=== PATIENT | male | born 1980 | race Caucasian/White ===

== ENCOUNTER 2024-07-07 02:43 | Day surgery (SDC) | payer BC, SELFPAY ==
[2024-07-07] VITALS (24 sets, daily range): BP systolic 120–165; BP diastolic 71–105; PULSE 75–99; RESP 14–20; TEMP 36.3–36.8; O2SAT 87–100; BMI 33.5
--- NOTE | 2024-07-07 03:06 | ED.GENADULT ---
HPI - General Adult General Chief complaint: Abdominal Pain Stated complaint: lower right abdominal pain Time Seen by Provider: 07/07/24 03:06 History of Present Illness HPI narrative: CC: Right Lower Abdominal Pain pt. with pain since 1900 last night. feels like a gas bubble. did have 2 small bm 's around 2100 yesterday. denies fevers, n/v, diarrhea. 44-year-old man presenting to the emergency department with concern pain maybe a pressure in the right low abdomen. He realized around bed timing last night that he does was uncomfortable in this area not wanting to be touched by his kid. Suppose like pain may have started 10 or 11 hours prior to presentation. [place] like needed the above far to her like a gas bubble. Did have a couple small bowel movements but has not improved. No nausea. Feels like does not tend to complain much about pain typically. No fever. No noted dysuria. Tried Gas-X and Pepto Bismol without relief. No prior surgeries. Takes Adderall for ADD during the work week Related Data Home Medications ?Medication ?Instructions ?Recorded ?Confirmed dextroamphetamine-amphetamine 10 10 mg PO DAILY PRN 07/07/24 07/07/24 mg tablet (Adderall) Allergies Allergy/AdvReac Type Severity Reaction Status Date / Time No Known Drug Allergies Allergy Verified 07/07/24 02:50 Review of Systems Status of ROS: Reports: 6 or more systems reviewed and unremarkable except as noted in History and below [facility] Medical History ADHD ?F90.9 - Attention-deficit hyperactivity disorder, unspecified type (ICD-10) Surgical History No significant past surgical history Social History Smoking Status: Never smoker Second hand tobacco smoke exposure: No How often do you have a drink containing alcohol: never AUDIT-C Alcohol total score: 0 Non-prescribed substance use: denies use Exam Narrative: Exam Narrative: Pleasant. Little restless. Breathing briefly. Lungs are clear. Heart in regular rate and rhythm. Well-perfused peripherally. Abdomen is a little overweight, soft, without peritoneal signs but reproducible moderate tenderness to palpation in the right lower abdomen/quadrant. Const: Vital Signs, click to edit/add: Vital Signs - 24 hr 07/07/24 02:48 07/07/24 03:38 07/07/24 04:02 Temperature 98.2 F Pulse Rate 85 96 Pulse Rate [Right Pulse Oximeter] 89 Respiratory Rate 18 18 20 Blood Pressure 165/98 H 150/103 H Blood Pressure [Ri ght Upper Arm] 164/105 H Pulse Oximetry 99 96 98 Oxygen Delivery Me thod Room Air 07/07/24 04:47 07/07/24 05:02 07/07/24 05:06 Temperature Pulse Rate 85 99 Pulse Rate [Right Pulse Oximeter] Respiratory Rate 18 18 Blood Pressure 155/85 H 150/100 H Blood Pressure [Ri ght Upper Arm] Pulse Oximetry 97 97 97 Oxygen Delivery Me thod 07/07/24 05:32 07/07/24 06:02 07/07/24 06:16 Temperature 98.2 F 98.2 F Pulse Rate 87 77 Pulse Rate [Right Pulse Oximeter] Respiratory Rate 20 20 Blood Pressure 136/88 139/89 Blood Pressure [Ri ght Upper Arm] Pulse Oximetry 94 93 Oxygen Delivery Me thod 07/07/24 06:32 Temperature 98.2 F Pulse Rate 98 Pulse Rate [Right Pulse Oximeter] Respiratory Rate 18 Blood Pressure 144/83 H Blood Pressure [Ri ght Upper Arm] Pulse Oximetry 94 Oxygen Delivery Me thod Documenting provider has reviewed patient's vital signs: yes Course Vital Signs Vital signs: Initial Vital Signs Temperature 98.2 F 07/07/24 02:48 Temperature Source Temporal Artery Scan 07/07/24 02:48 Pulse Rate 89 07/07/24 02:48 Respiratory Rate 18 07/07/24 02:48 Blood Pressure 164/105 H 07/07/24 02:48 Blood Pressure Mean 124 H 07/07/24 02:48 Blood Pressure Position Sitting 07/07/24 02:48 Pulse Oximetry 99 07/07/24 02:48 Oxygen Delivery Method Room Air 07/07/24 02:48 Vital Signs Temperature 98.2 F 07/07/24 02:48 Pulse Rate 89 07/07/24 02:48 Respiratory Rate 18 07/07/24 02:48 Blood Pressure 164/105 H 07/07/24 02:48 Pulse Oximetry 99 07/07/24 02:48 Oxygen Delivery Method Room Air 07/07/24 02:48 Temperature 98.2 F 07/07/24 06:32 Pulse Rate 98 07/07/24 06:32 Respiratory Rate 18 07/07/24 06:32 Blood Pressure 144/83 H 07/07/24 06:32 Pulse Oximetry 94 07/07/24 06:32 Oxygen Delivery Method Room Air 07/07/24 02:48 Medications Administered Medications: Discontinued Medications Generic Name Dose Route Start Last Admin Trade Name Chau PRN Reason Stop Dose Admin Sodium Chloride 1,000 mls @ 1,000 mls/hr 07/07/24 03:17 07/07/24 04:09 0.9 % Sodium Chloride 1000 Ml IV 07/07/24 04:16 Infused .Q1H ONE Infusion Ketorolac Tromethamine 15 mg 07/07/24 04:39 07/07/24 04:42 Ketorolac 15 Mg/Ml Inj IVP 07/07/24 04:40 15 mg ONCE ONE Administration Morphine Sulfate 4 mg 07/07/24 04:39 07/07/24 05:03 Morphine 4 Mg/Ml Inj IVP 07/07/24 04:40 2 mg ONCE ONE Administration Medical Decision Making MDM Narrative Medical decision making narrative: Does not seem as though he is describing constipation. Differential could include urinary tract infection though unlikely, kidney stone but also does not seem typical for that. Reproducibility and location I think in this case suggests appendicitis. Will do some imaging to verify. Review of a CT abdomen and pelvis independently by me shows changes developed think consistent with Pepto-Bismol ingestion. Otherwise does appear to be a plump appendix in the right lower abdomen and appendicolith. Radiology over-read below INDICATION: Right lower quadrant abdominal pain. TECHNIQUE: CT abdomen and pelvis without contrast. COMPARISON: None. FINDINGS: Lower chest: Unremarkable. Liver: Diffuse hepatic steatosis. Gallbladder and bile ducts: Unremarkable. Pancreas: Unremarkable. Spleen: Unremarkable. Adrenal glands: Unremarkable. Kidneys: No hydronephrosis or hydroureter. No urinary calculi. GI tract: No bowel obstruction. No suspicious bowel wall thickening. The appendix is mildly dilated measuring up to 8 mm with appendicolith (series 4, image 76), and periappendiceal inflammatory fat stranding. No periappendiceal fluid collection appreciated. Vasculature: No abdominal aortic aneurysm. Lymph nodes: No suspicious lymphadenopathy. Peritoneum/Abdominal Wall: No ascites or pneumoperitoneum. No acute abdominal wall abnormality. Pelvis: Normal bladder. Unremarkable prostate and seminal vesicles. Bones: No acute abnormality. IMPRESSION: 1. Findings compatible with acute appendicitis with appendicolith. No periappendiceal fluid collection/abscess. No pneumoperitoneum. 2. Diffuse hepatic steatosis. Please note that all CT scans at this facility use dose modulation, iterative reconstruction, and/or weight-based dosing when appropriate to reduce radiation dose to as low as reasonably achievable. Dictated by Jeremiah Barlow MD @ 07/07/2024 3:46:11 AM I did discuss these findings with General surgery. Would anticipate surgery for appendicitis at some point this morning. Anticipate boarding in the emergency department until surgical intervention. Has received L normal saline. Initially declined pain medication but having trouble sleeping and so did give 15 mg of ketorolac and then still with some pain, ordered for 4mg but per preference only took 2 mg of morphine per his preference. On reassessment is sleeping. Lab Data Lab results reviewed: Yes I reviewed the patient's lab results Labs: Lab Results 07/07/24 07/07/24 Range/Units 03:25 03:29 WBC 9.69 (4.50-11.00) K/uL RBC 4.95 (4.30-5.90) m/uL Hgb 15.3 (13.5-17.5) gm/dL Hct 43.2 (37.0-53.0) % MCV 87 (80-100) fL MCH 31 (26-34) pg MCHC 35 (32-36) gm/dL RDW Coeff of Ck 12.1 (11.5-15.5) % Plt Count 189 (140-440) K/uL Neut % (Auto) 79.2 H (42.0-72.0) % Lymph % (Auto) 13.0 L (20-44) % [place] % (Auto) 6.4 (0.0-11.0) % Eos % (Auto) 0.9 (0.0-7.0) % Baso % (Auto) 0.2 (0.0-3.0) % Neut # (Auto) 7.70 H (1.7-7.0) K/uL Lymph # (Auto) 1.30 (0.90-2.90) K/uL [place] # (Auto) 0.60 (0.00-0.90) K/UL Eos # (Auto) 0.09 (0.00-0.50) K/uL Baso # (Auto) 0.02 (0.00-0.30) K/uL Abs Immat Gran (auto) 0.03 (0.00-0.30) K/uL Imm/Tot Granulo (auto) 0.3 % Sodium 139 (135-149) mmol/L Potassium 4.0 (3.6-5.1) mmol/L Chloride 102 (96-114) mmol/L Carbon Dioxide 29 (20-32) mmol/L Anion Gap 8 (7-15) mEq/L BUN 21 (5-24) mg/dL Creatinine 1.0 (0.5-1.5) mg/dL Estimated Creat Clear 100.40 Estimated GFR 95 ml/min Glucose 109 (60-115) mg/dL Calcium 9.4 (8.4-10.6) mg/dL C-Reactive Protein < 0.5 L (0.5-1.0) mg/dL Urine Color Yellow (Yellow) Urine Appearance Clear (Clear) Urine pH 5.5 (5.0-8.5) Ur Specific [place] 1.025 (1.000-1.030) Urine Protein Negative (Negative) Urine Glucose (UA) Negative (Negative) Urine Ketones Negative (Negative) Urine Blood Negative (Negative) Urine Nitrite Negative (Negative) Urine Bilirubin Negative (Negative) Urine Urobilinogen 0.2 (0.2-1.0) Ur Leukocyte Esterase Negative (Negative) Urine RBC 0-2 (0-2) Urine WBC 0-2 (0-5) Ur Squamous Epith Cells Few (None-Few) Urine Bacteria Few A (None) Discharge Plan Discharge Clinical Impression: Acute appendicitis, Abdominal pain Patient Disposition: XFER to OR Condition: Stable Follow Up/Referrals: Jessica Isaac PA [Primary Care Provider, Family Practice]
--- NOTE | 2024-07-07 03:17 | CRLHL7_ITS ---
For Patients: As a result of the Century Cures Act, medical imaging exams and procedure reports are released immediately into your electronic medical record. You may view this report before your referring provider. If you have questions, please contact your health care provider. INDICATION: Right lower quadrant abdominal pain. TECHNIQUE: CT abdomen and pelvis without contrast. COMPARISON: None. FINDINGS: Lower chest: Unremarkable. Liver: Diffuse hepatic steatosis. Gallbladder and bile ducts: Unremarkable. Pancreas: Unremarkable. Spleen: Unremarkable. Adrenal glands: Unremarkable. Kidneys: No hydronephrosis or hydroureter. No urinary calculi. GI tract: No bowel obstruction. No suspicious bowel wall thickening. The appendix is mildly dilated measuring up to 8 mm with appendicolith (series 4, image 76), and periappendiceal inflammatory fat stranding. No periappendiceal fluid collection appreciated. Vasculature: No abdominal aortic aneurysm. Lymph nodes: No suspicious lymphadenopathy. Peritoneum/Abdominal Wall: No ascites or pneumoperitoneum. No acute abdominal wall abnormality. Pelvis: Normal bladder. Unremarkable prostate and seminal vesicles. Bones: No acute abnormality. IMPRESSION: 1. Findings compatible with acute appendicitis with appendicolith. No periappendiceal fluid collection/abscess. No pneumoperitoneum. 2. Diffuse hepatic steatosis. Please note that all CT scans at this facility use dose modulation, iterative reconstruction, and/or weight-based dosing when appropriate to reduce radiation dose to as low as reasonably achievable. Dictated by Jeremiah Barlow MD @ 07/07/2024 3:46:11 AM (Electronically Signed)
[2024-07-07] MEDS: 0.9 % SODIUM CHLORIDE 1000 ml 1,000 ML IV (03:25)
[2024-07-07 03:32] LABS: Basophils Absolute Auto 0.02 K/uL (0.00-0.30); Basophils Percent Auto 0.2 % (0.0-3.0); Eosinophils Absolute Auto 0.09 K/uL (0.00-0.50); Eosinophils Percent Auto 0.9 % (0.0-7.0); Hematocrit 43.2 % (37.0-53.0); Hemoglobin* 15.3 gm/dL (13.5-17.5); Immature Granulocytes Abs Auto 0.03 K/uL (0.00-0.30); Immature Granulocytes Pct Auto 0.3 %; Mean Corpuscular HGB Conc 35 gm/dL (32-36); Mean Corpuscular Hemoglobin 31 pg (26-34); Mean Corpuscular Volume 87 fL (80-100); Monocytes Percent Auto 6.4 % (0.0-11.0); Neutrophils Percent Auto 79.2 % (42.0-72.0); Platelet Count* 189 K/uL (140-440); RDW Coefficient of Variation % 12.1 % (11.5-15.5); Red Blood Count 4.95 m/uL (4.30-5.90); White Blood Count* 9.69 K/uL (4.50-11.00)
[2024-07-07 03:36] LABS: Appearance Urine Clear (Clear); Bilirubin Urine Negative (Negative); Blood Urine Negative (Negative); Color Urine Yellow (Yellow); Glucose Urine Negative (Negative); Ketones Urine Negative (Negative); Leukocyte Esterase Urine Negative (Negative); Nitrite Urine Negative (Negative); Protein Urine Negative (Negative); Specific Gravity Urine 1.025 (1.000-1.030); Urobilinogen Urine 0.2 (0.2-1.0); pH Urine 5.5 (5.0-8.5)
[2024-07-07 03:37] LABS: Slide Review Reflex No
[2024-07-07 03:45] LABS: Chloride* 102 mmol/L (96-114); Sodium* 139 mmol/L (135-149)
[2024-07-07 03:48] LABS: Anion Gap 8 mEq/L (7-15); Blood Urea Nitrogen* 21 mg/dL (5-24); Calcium* 9.4 mg/dL (8.4-10.6); Carbon Dioxide* 29 mmol/L (20-32); Estimated Glomerular Filt Rate 95 ml/min; Glucose* 109 mg/dL (60-115)
[2024-07-07 03:49] LABS: Bacteria Urine Few; RBC Urine 0-2 (0-2); Squamous Epithelial Cell Urine Few (None-Few); WBC Urine 0-2 (0-5)
[2024-07-07 03:52] LABS: C Reactive Protein* < 0.5 mg/dL (0.5-1.0)
--- OUTSIDE RECORDS SUMMARY | 2024-07-07 03:57 | XMS_ITS | Clinical Summary ---
Author Organization [facility] Address [address] [place] [id number] Care Team Providers Care Electronics Parts Sales Representative Name Role Phone No Ref-Primary, Physician Primary Care Provider Allergies No known active allergies Medications amphetamine-dex troamphetamine (ADDERALL XR) 25 MG 24 hr capsule Take by mouth daily as needed 0 02/20/2017 Active cephALEXin (KEFLEX) 500 MG capsuleIndicati ons:Paronychia of finger of right hand Take 1 capsule (500 mg) by mouth 2 times daily 20 capsule 02/20/2017 Active Active Problems No known active problems Immunizations Immunization Administration Dates Next Due Influenza Vaccine >6 months,quad, PF 11/15/2018 TDAP Vaccine (Adacel) 10/24/2015 Family History Relation Status Comments Father Alive Mother Alive Social History Tobacco Use Types Packs/Day Years Used Date Smoking Tobacco: Never Smokeless Tobacco: Never Alcohol Use Standard Drinks/Week Comments Yes 0 (1 standard drink = 0.6 oz pur e alcohol) rare PHQ-2 Answer Date Recorded PHQ-2 Score 0 02/13/2018 Adolescent Education Answer Date Record ed Getting School Help Needed Not on file 10/27 Sex and Gender Information Value Date Recorded Sex Assigned at Male 04/22/2019 9:19 AM CDT Legal Sex Male 11:11 AM CDT Gender Identity Male 04/22/2019 9:19 AM CDT Sexual Orientation Straight 06/18/2021 12 :12 PM CDT Last Filed Vital Signs Vital Sign Reading Time Taken Comments Blood Pressure 130/72 02/20/2017 9:31 AM PARKING METER COLLECTOR Pulse 68 02/20/2017 9:31 AM PARKING METER COLLECTOR Temperature 37 C (98.6 F) 02/20/2017 9:31 AM PARKING METER COLLECTOR Respiratory Rate 16 02/20/2017 9:31 AM PARKING METER COLLECTOR Oxygen Saturation 97% 02/20/2017 9:31 AM PARKING METER COLLECTOR Inhaled Oxygen Concentration - - Weight 100.7 kg (222 lb) 02/20/2017 9:31 AM PARKING METER COLLECTOR Height 182.9 cm (6') 02/20/2017 9:31 AM PARKING METER COLLECTOR Body Mass Index 30.11 02/20/2017 9:31 AM PARKING METER COLLECTOR Plan of Treatment Not on file [place] Care Teams Electronics Parts Sales Representative Relationship Specialty Start Date End Date No Ref-Primary, Physician PCP - General 09/02/16
--- OUTSIDE RECORDS SUMMARY | 2024-07-07 03:57 | XMS_ITS | Clinical Summary ---
Author Organization [facility] Address [address] [place] [address] Care Team Providers Care Technician'S Helper Name Role Phone Jessica Isaac Primary Care Provider Allergies No known active allergies Medications dextroamphetamin e-amphetamine (Adderall XR) 10 mg Extended-Release capsuleIndicatio ns:Attention deficit disorder, unspecified type Take 1-2 Capsules (10-20 mg) by mouth once daily. 60 Capsule 5 Active Active Problems Problem Noted Date Diagnosed Date Controlled substance agreement signed 12/24/2020 Attention deficit disorder 12/24/2020 Resolved Problems Problem Noted Date Diagnosed Date Resolved Date COVID-19 virus infection 03/23/202112/2021 Immunizations Immunization Administration Dates Next Due COVID-19 vaccine (Moderna 100mcg/0.5mL) PF, MDV 02/16/2021 Influenza, IIV4 03/12/2020,11/15/2018 Tdap 10/24/2015 Family History Medical History Relation Name Comments Diabetes type II Father Relation Name Status Comments Father Social History Tobacco Use Types Packs/Day Years Used Date Smoking Tobacco: Never Smokeless Tobacco: Never Alcohol Use Standard Drinks/Week Comments Yes 1 (1 standard drink = 0.6 oz pur e alcohol) PHQ-2 Answer Date Recorded PHQ-2 TOTAL SCORE 0 06/04/2023 Social Connections Answer Date Recorded Frequency of Communication with Friends and Fami ly 0 06/09/2022 Financial Resource Strain Answer Date R ecorded Difficulty of Paying Living Expenses 3 06/09/2022 Difficulty of Paying Living Expenses Not on file 06/09/2022 Food Insecurity Answer Date Recorded Worried About Running Out of Food in the Last Ye ar 1 06/09/2022 Transportation Needs Answer Date Record ed Lack of Transportation (Medical) 1 06/09/2022 Housing Stability Answer Date Recorded Unable to Pay for Housing in the Last Year 1 06/09/2022 Sex and Gender Information Value Date Recorded Sex Assigned at Male 06/29/2021 3:29 PM CDT Legal Sex Male 5:32 PM CDT Gender Identity Male 06/29/2021 3:29 PM CDT Sexual Orientation Straight 06/29/2021 3: 29 PM CDT Obstetrics History Last Filed Vital Signs Vital Sign Reading Time Taken Comments Blood Pressure 130/84 02/28/2024 2:06 PM LUMP RECEIVER Pulse 85 02/28/2024 2:06 PM LUMP RECEIVER Temperature 36.9 C (98.5 F) 12/18/2022 12:35 PM LUMP RECEIVER Respiratory Rate 16 02/28/2024 2:06 PM LUMP RECEIVER Oxygen Saturation 96% 02/28/2024 2:06 PM LUMP RECEIVER Inhaled Oxygen Concentration - - Weight 110.8 kg (244 lb 4.8 oz) 02/28/2024 2:06 PM LUMP RECEIVER Height 180.3 cm (5' 11) 06/04/2023 10: 58 AM CDT Body Mass Index 34.07 06/04/2023 10:58 AM CDT Plan of Treatment Health Maintenance Due Date Last Done Comments Hepatitis B series for 19+ (1 of 3 - 19+ 3-dose series) 02/06/1999 COVID-19 vaccine series ( season) 2023 02/16/2021 BMI (ht and wt on same day) for age 18+ 06/03/2024 06/04/2023, 06/09/2022, 12/16/2021, Additional history exists Depression screening for age 12+ 06/03/2024 06/04/2023, 03/29/2021, 03/12/2020 Influenza Vaccine (Season Ended) 2024 03/12/2020, 11/15/2018 Tetanus booster 10/23/2025 10/24/2015 Lipids for age 35-44 12/16/2026 12/16/2021, 12/17/19 22 Tdap Completed 10/24/2015 HIV for age 15-65 Completed 06/07/2020 Hepatitis C screening for age 18-79 Completed 06/07/2020 Pneumococcal series for age 6-49 Aged Out No longer eligible based on patient's age to complete this topic Procedures Procedure Name Priority Date/Time Associated Diagnosis Comments LIPID PANEL W REFLEX MEASURED LDL Routine 12/16/2021 9:00 AM LUMP RECEIVER Lipid screening ANTI HIV 1/2 Routine 06/07/2020 8:55 AM CDT Contact with and (suspected) exposure to potentially hazardous body fluids ANTI HCV Routine 06/07/2020 8:55 AM CDT Contact with and (suspected) exposure to potentially hazardous body fluids from Last 3 Months or Most Recently Relevant to Health Maintenance Results * (ABNORMAL) LIPID PANEL W REFLEX MEASURED LDL (12/16/2021 9:00 AM LUMP RECEIVER) CHOLESTEROL,TOTAL 244(H) 100 - 199 mg/dL 12/17/2021 4:09 PM LUMP RECEIVER [facility] TRIGLYCERIDES 411(H) <150 mg/dL 12/17/2021 4:09 PM LUMP RECEIVER [facility] HDL CHOLESTEROL 35(L) >40 mg/dL 2 4:09 PM LUMP RECEIVER [facility] NON-HDL CHOLESTEROL 209(H) <145 mg/dl 12/17/2021 4:09 PM LUMP RECEIVER [facility] CHOL/HDL RATIO 6.97(H) <4.50 12/17/2021 4:09 PM LUMP RECEIVER [facility] LDL CHOLESTEROL 2 4:09 PM LUMP RECEIVER [facility] Comment:Invalid LDL when Tri g >400, reflexed to measured LDL VLDL CHOLESTEROL COMMENT 12/17/2021 4:09 PM [facility] Comment:Unable to calculate VLDL. PROVIDER ORDERED STATUS RANDOM 12/17/2021 4:09 PM LUMP RECEIVER [facility] Blood BLOOD SPECIMEN / Unknown Venipuncture / Unknown 12/16/2021 9:00 AM LUMP RECEIVER 12/16/2021 9:03 AM LUMP RECEIVER Jessica MARTIN CHEMISTRY Final R esult [facility] [address] [place] [address], [place] * ANTI HCV (06/07/2020 8:55 AM CDT) HEPATITIS C ANTIBODY Non-React vasu Non-React vasu 06/07/2020 3:12 PM CDT [facility] Comment:Antibodies to HCV no t detected; does not exclude the possibility of exposure to HCV. Blood BLOOD SPECIMEN / Unknown Venipuncture / Unknown 06/07/2020 8:55 AM CDT 06/07/2020 9:07 AM CDT Jessica MARTIN SEND OUTS Final R esult [facility] [address] [place] [address], [place] * ANTI HIV 1/2 (06/07/2020 8:55 AM CDT) HIV-1/HIV-2 ANTIBODY Non-Reacti ve Non-Reacti ve 06/07/2020 3:55 PM CDT [facility] Comment:HIV-1 p24 and HIV-1/ HIV-2 Ab not detected. Blood BLOOD SPECIMEN / Unknown Venipuncture / Unknown 06/07/2020 8:55 AM CDT 06/07/2020 9:07 AM CDT Jessica MARTIN SEND OUTS Final R esult [facility] [address] [place] [address], from Last 3 Months or Most Recently Relevant to Health Maintenance Insurance Care Teams Technician'S Helper Relationship Specialty Start Date End Date Jessica Isaac PA [address] [place] [address] [address] [place] [address] PCP - General Physician Spar[place] 02/28/24
[2024-07-07] MEDS: KETOROLAC 15 MG/ML inj IVP (04:42)
[2024-07-07] MEDS: MORPHINE 4 MG/ML INJ IVP (05:03)
[2024-07-07] MEDS: LACTATED RINGERS 1000 ML 1,000 ML 100 ML IV ×2 (08:30→11:24)
[2024-07-07] MEDS: SODIUM CHLORIDE 0.9 % (FLUSH) 10 ML SYRINGE IVF (08:39)
--- NOTE | 2024-07-07 10:05 | PM.GSCN ---
History of Present Illness Consult details Date Seen: 07/07/24 Consult date: 07/07/24 Narrative: 44-year-old male presented to emergency room with abdominal pain. Patient states that he first felt like he was ?gassy?. This discomfort started last night around 6 or 8:00 p.m.. He did not have dinner. He fell asleep for 10 minutes but when he woke up, his discomfort was still bothering him. He was not passing gas. He denies any nausea vomiting. He denied fevers. He drove to grocery store to get Gas-[employer] but decided to come to the emergency room. I personally reviewed patient's workup in the emergency room. Patient was found to have normal WBC with elevated neutrophils. An abdominal CT was obtained that showed a dilated will enhancing appendix with periappendiceal inflammation. There was an appendicolith noted in the appendix. There is no evidence of an abscess. 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 Smoking Status: Never smoker Do you use any of these nicotine containing products: None Second hand tobacco smoke exposure: No How often do you have a drink containing alcohol: never How often do you have six or more drinks on one occasion: Never AUDIT-C Alcohol total score: 0 Non-prescribed substance use: denies use Caffeine: Yes Meds Home Medications and Allergies Home Medications ?Medication ?Instructions ?Recorded ?Confirmed ?Type dextroamphetamine-amphetamine 10 10 mg PO DAILY PRN 07/07/24 07/07/24 History mg tablet (Adderall) Allergies Allergy/AdvReac Type Severity Reaction Status Date / Time No Known Drug Allergies Allergy Verified 07/07/24 08:44 Exam Narrative: Exam Narrative: General appearance: Alert, cooperative, and in no distress Pulmonary: Chest symmetric, lungs clear bilaterally Cardiovascular Heart: Regular rate and rhythm, S1, S2, no murmurs/rubs/gallops Gastrointestinal Abdominal: soft, not distended, tender to palpation in the right lower quadrant with rebound tenderness. Not tender to palpation anywhere else. Skin: Normal skin color, texture, and turgor. No rashes or lesions. Psychiatric: Alert, cooperative, normal affect. Const: Vital Signs, click to edit/add: Vital Signs - 24 hr 07/07/24 02:48 07/07/24 03:38 07/07/24 04:02 Temperature 98.2 F Pulse Rate 85 96 Pulse Rate [Right Pulse Oximeter] 89 Respiratory Rate 18 18 20 Blood Pressure 165/98 H 150/103 H Blood Pressure [Le ft Arm] Blood Pressure [Ri ght Upper Arm] 164/105 H Pulse Oximetry 99 96 98 Oxygen Delivery Me thod Room Air 07/07/24 04:47 07/07/24 05:02 07/07/24 05:06 Temperature Pulse Rate 85 99 Pulse Rate [Right Pulse Oximeter] Respiratory Rate 18 18 Blood Pressure 155/85 H 150/100 H Blood Pressure [Le ft Arm] Blood Pressure [Ri ght Upper Arm] Pulse Oximetry 97 97 97 Oxygen Delivery Me thod 07/07/24 05:32 07/07/24 06:02 07/07/24 06:16 Temperature 98.2 F 98.2 F Pulse Rate 87 77 Pulse Rate [Right Pulse Oximeter] Respiratory Rate 20 20 Blood Pressure 136/88 139/89 Blood Pressure [Le ft Arm] Blood Pressure [Ri ght Upper Arm] Pulse Oximetry 94 93 Oxygen Delivery Me thod 07/07/24 06:32 07/07/24 08:33 Temperature 98.2 F 97.8 F Pulse Rate 98 Pulse Rate [Right Pulse Oximeter] 86 Respiratory Rate 18 Blood Pressure 144/83 H Blood Pressure [Le ft Arm] 144/102 H Blood Pressure [Ri ght Upper Arm] Pulse Oximetry 94 Oxygen Delivery Me thod Room Air Results Labs Labs: Abnormal lab results 07/07/24 07/07/24 Range/Units 03:25 03:29 Neut % (Auto) 79.2 H (42.0-72.0) % Lymph % (Auto) 13.0 L (20-44) % Neut # (Auto) 7.70 H (1.7-7.0) K/uL C-Reactive Protein < 0.5 L (0.5-1.0) mg/dL Urine Bacteria Few A (None) Diabetes panel 07/07/24 Range/Units 03:25 Sodium 139 (135-149) mmol/L Potassium 4.0 (3.6-5.1) mmol/L Chloride 102 (96-114) mmol/L Carbon Dioxide 29 (20-32) mmol/L BUN 21 (5-24) mg/dL Creatinine 1.0 (0.5-1.5) mg/dL Glucose 109 (60-115) mg/dL Calcium 9.4 (8.4-10.6) mg/dL Calcium panel 07/07/24 Range/Units 03:25 Calcium 9.4 (8.4-10.6) mg/dL Pituitary panel 07/07/24 Range/Units 03:25 Sodium 139 (135-149) mmol/L Potassium 4.0 (3.6-5.1) mmol/L Chloride 102 (96-114) mmol/L Carbon Dioxide 29 (20-32) mmol/L BUN 21 (5-24) mg/dL Creatinine 1.0 (0.5-1.5) mg/dL Glucose 109 (60-115) mg/dL Calcium 9.4 (8.4-10.6) mg/dL Adrenal panel 07/07/24 Range/Units 03:25 Sodium 139 (135-149) mmol/L Potassium 4.0 (3.6-5.1) mmol/L Chloride 102 (96-114) mmol/L Carbon Dioxide 29 (20-32) mmol/L BUN 21 (5-24) mg/dL Creatinine 1.0 (0.5-1.5) mg/dL Glucose 109 (60-115) mg/dL Calcium 9.4 (8.4-10.6) mg/dL All other labs normal. Progress Note:A&P Assessment and plan (1) Acute appendicitis: Status: Acute Assessment and Plan: 44-year-old male presents with acute appendicitis. I discussed with the patient my clinical findings. We talked about his laboratory and imaging findings. Patient CT scan shows minimally dilated wall enhancing appendix with periappendiceal inflammation. Patient has tenderness in the right lower quadrant on clinical exam. These findings are concerning for acute appendicitis. I recommended to proceed with laparoscopic appendectomy. The procedure was discussed in detail. The risks associated procedure including infection, bleeding, injury to intra-abdominal organs, and the need for additional procedures were all discussed with the patient, and he agreed to proceed.
--- NOTE | 2024-07-07 10:11 | PM.GSPRC ---
Operative Note Date of procedure: 07/07/24 Pre-op diagnosis: 1. Acute appendicitis. Post-op diagnosis: 1. Acute suppurative appendicitis. 2. Meckel's diverticulum. Type of Procedure: 1. Laparoscopic appendectomy. 2. Laparoscopic Meckel's diverticulectomy. Indications: 44-year-old male presented to emergency room with abdominal pain. Upon his workup he was found to have normal WBC. An abdominal CT was obtained that showed a minimally dilated wall enhancing appendix with periappendiceal inflammation. There was also an appendicolith. On clinical exam patient had tenderness to palpation in the right lower quadrant with rebound tenderness. Given patient's clinical history, acute appendicitis was suspected, and laparoscopic appendectomy was recommended. The procedure was discussed in detail. The risks associated procedure including infection, bleeding, injury to intra-abdominal organs, and the need for additional procedures were all discussed with the patient, and he agreed to proceed. Procedure Description: After discussing the risks and benefits of the procedure, the patient signed informed consent.? The operative site was marked and the patient was brought to the operating room and placed on the operating table in supine position.? Care was taken to pad the patient's pressure points.?? The patient was then intubated by anesthesia.?? The operative site was then prepped and draped in the usual sterile fashion.? A time-out was then performed. A 5-mm laparoscopy port was placed in the left upper quadrant guided by a 5-mm laparoscope placed into a translucent trochar. Passage through the layers of the abdominal wall was visualized with the laparoscope. A pneumoperitoneum was established. A 30-degree 5-mm laparoscope was advanced into the abdomen. The abdomen was briefly surveyed, and there was no evidence of diffuse peritonitis. A 12-mm port and a 5-mm port were placed in the left low quadrant and suprapubically, respectively, under direct visualization by laparoscope. Left upper quadrant entrance port was then examined intraabdominally by placing the camera through the left lower quadrant port and no intraabdominal injury was seen. The patient was placed in Trendelenburg position, allowing the abdominal contents to shift cephalad. The small bowel was moved toward the midline in the abdomen and this allowed for identification of the appendix. It appeared to be inflamed. There was also a Meckel's diverticulum seen in the terminal ileum. This was not inflamed and was not firm to palpation. The appendix was grasped and dissected from the peritoneum using Harmonic scalpel. Terminal ileal fat pad was covering the base of the appendix. Wispy adhesions of the terminal ileal fat pad to the cecum were taken down with Metzenbaum scissors. The appendiceal mesentery was then skeletonized with the Harmonic scalpel. Appendiceal artery was clipped with 2 5 mm clips on the patient's side and divided with the Harmonic scalpel on the specimen side. Arterial bleeding was seen just next to the clips. This was controlled with an additional 5 mm clip. The appendiceal base was further skeletonized with Harmonic scalpel. A vascular load Endo-RAJ stapler was advanced through the 12-mm port into the abdomen and appendix was stapled off at its base. The appendix was then placed in an endoscopic retrieval bag and extracted from the abdomen through the 12-mm port. The abdomen was surveyed for hemostasis. And no bleeding was seen. I then scrubbed out of the case and discussed Meckel's diverticulectomy with patient's . The risks and benefits of Meckel's diverticulectomy were discussed with the patient's . Patient's wanted to proceed with diverticulectomy and felt that her would elect to remove the diverticulum. I then proceeded with laparoscopic Meckel's diverticulectomy. The diverticulectomy mesentery was divided with Harmonic scalpel along the wall of the diverticulum to be able to staple the diverticulum across. A single load vascular stapler was then used to staple the diverticulum at its base with care taken not to encroach onto the lumen of the small intestine. Small amount of bleeding was seen from the corner of the staple line near the mesentery. This was controlled with a 5 mm clip. The 12-mm port was withdrawn and the fascial defect was closed with 0-0 Vicryl stitch using Quintin Sita needle under direct visualization. The 5-mm port was removed under direct visualization. The left upper quadrant port was used to evacuate the pneumoperitoneum and then withdrawn. The skin incisions were closed with 4-0 monocryl. Steri-Strips were applied over the incisions. All counts were correct at the end of the case. The patient tolerated this procedure well and was transferred to PACU in stable condition. Findings: Inflamed appendix with no periappendiceal abscess. Meckel's diverticulum was identified and was removed. Anesthesia: GETA Surgeon: Honey Tian MD Estimated blood loss (mL): 10 Additional Specimen Information: 1. Appendix. 2. Meckel's diverticulum. Condition: stable Disposition: PACU
[2024-07-07] MEDS: PIPERACILLIN/TAZOBACTAM 3.375 GM INJ IVPB (10:36)
[2024-07-07] MEDS: BUPIVACAINE 0.25% 30 ML 10 ML INJECTION (10:45)
[2024-07-07] MEDS: LIDOCAINE 1%-EPI 1:100,000 10 ML INFILTRATI (10:45)
--- NOTE | 2024-07-07 10:47 | SUR.OPER ---
PATIENT QUESTIONS ANSWERED SATISFACTORILY PREOPERATIVELY. PATIENT BROUGHT TO OR #1 PER CART. Patient positioned supine on OR #1 bed. The perioperative team supported arms bilaterally on arm boards. Final approval of positioning by surgeon.
--- NOTE | 2024-07-07 12:27 | P.ANES_ITS ---
Anesthesia Charges Start Date/Time Anesthesia Start Date: 07/07/24 Anesthesia Start Time: 10:22 Stop Date/Time Anesthesia Stop Date: 07/07/24 Anesthesia Stop Time: 12:28 Coding CPT Codes CPT Codes: ANESTH SURG LOWER ABDOMEN - 50418 ([id number]) P2 - PATIENT W/MILD SYST DISEASE, QK - GEOSPATIAL TECHNICIAN 2-4 CNCRNT ANES PROC, QX - SPEECH CLINICIAN SVC W/ MD MED DIRECTION
--- NOTE | 2024-07-07 12:27 | W.ANESCHARGE ---
Anesthesia Charges Start Date/Time Anesthesia Start Date: 07/07/24 Anesthesia Start Time: 10:22 Stop Date/Time Anesthesia Stop Date: 07/07/24 Anesthesia Stop Time: 12:28 Coding CPT Codes CPT Codes: ANESTH SURG LOWER ABDOMEN - 62846 ([id number]) P2 - PATIENT W/MILD SYST DISEASE, QK - CLINICAL ACADEMIC ALLERGIST 2-4 CNCRNT ANES PROC, QX - LIVESTOCK HANDLER SVC W/ MD MED DIRECTION
--- NOTE | 2024-07-07 12:28 | P.ANES_ITS ---
Anesthesia Charges Start Date/Time Anesthesia Start Date: 07/07/24 Anesthesia Start Time: 10:22 Stop Date/Time Anesthesia Stop Date: 07/07/24 Anesthesia Stop Time: 12:28 Summary Emergency: WARP SPOOLER Coding CPT Codes CPT Codes: ANESTH SURG LOWER ABDOMEN - 64802 ([id number]) QX - WARP SPOOLER SVC W/ MD MED DIRECTION, QK - INTEGRATED CIRCUIT FABRICATOR 2-4 CNCRNT ANES PROC, P2 - PATIENT W/MILD SYST DISEASE Additional Codes: Summary - Emergency: WARP SPOOLER ([id number])
--- NOTE | 2024-07-07 12:28 | W.ANESCHARGE ---
Anesthesia Charges Start Date/Time Anesthesia Start Date: 07/07/24 Anesthesia Start Time: 10:22 Stop Date/Time Anesthesia Stop Date: 07/07/24 Anesthesia Stop Time: 12:28 Summary Emergency: CREDIT PROFESSIONAL Coding CPT Codes CPT Codes: ANESTH SURG LOWER ABDOMEN - 43320 ([id number]) QX - CREDIT PROFESSIONAL SVC W/ MD MED DIRECTION, QK - CHINESE HERBALIST 2-4 CNCRNT ANES PROC, P2 - PATIENT W/MILD SYST DISEASE Additional Codes: Summary - Emergency: CREDIT PROFESSIONAL ([id number])
--- NOTE | 2024-07-07 13:13 | SUR.PHASEII ---
1300: On entry to Phase II, pt alert and oriented. O2 sats 87% RA. Pt encouraged to cough and take deep breaths. 3L NC o2 applied, o2 sats 84%. O2 increased to 6L via mask. O2 sats increased to 98%. Pt has water available and call light within reach. Family at the bedside.
--- NOTE | 2024-07-07 14:28 | SUR.PHASEII ---
Patient's vital signs stable, O2 sats above 91%-97% with deep breaths, gave patient incentive spirometer to use at home, instructed patient on Sleep apnea risk and follow up with primary care provider for further testing. Anesthesia aware of patients O2 sats, ok to discharge home with family.
== END 2024-07-07 14:25 | disposition home or self-care (01) ==
LOC: ED 07:36 → MS OUT 08:05 → OR 08:24 → SS 08:43
PROVIDERS: Emergency Provider Family Medicine; PCP Physician Assistant; Visit Provider Surgery
PROC: 0DTJ4ZZ Resection of Appendix, Percutaneous Endoscopic Approach (ICD-10-PCS; CPT 44970; principal; 2024-07-07 11:00)
DX: K35.80 Unspecified acute appendicitis (principal); Q43.0 Meckel's diverticulum (displaced) (hypertrophic); R10.31 Right lower quadrant pain
CPT/HCPCS: 44970; 44238; 00840; 36415; 74176; 80048; 81001; 85025; 86140; 87086; 94761; 99140; 99284; J0665; J1100; J1171; J1885; J2250; J2270; J2371; J2405; J2543; J2704; J2710; J3010; J3490; J7030; J7120